=== PATIENT | female | born 1930 | race Caucasian/White ===

== ENCOUNTER 2017-03-27 11:19 | Emergency (ER) | payer MEDICARE, OTHER ==
--- NOTE | 2017-03-27 12:29 | ER NURSING DOCUMENTATION ---
Nurse's Notes [facility] Name:Mary Ann Chavez Age:86 yrs Sex:Female :1930 Arrival Date:03/27/2017 Time:11:19 Bed6 Private MD: Diagnosis:Abrasion Presentation: 03/27 11:26 Presenting complaint: Patient states: Fall with L knee pain. lp 11:26 Acuity: GORAN 3 lp 11:44 Transition of care: Home. lp 11:44 Method Of Arrival: Private Vehicle lp Triage Assessment: 11:41 General: Appears in no apparent distress, Behavior is appropriate for age. Pain: lp Complains of pain in left knee Pain currently is 3 out of 10 on a pain scale. EENT: No deficits noted. Neuro: No deficits noted. Cardiovascular: No deficits noted. Respiratory: No deficits noted. GI: No deficits noted. : No deficits noted. Derm: Skin has lesions on L knee wound. Musculoskeletal: Circulation, motion, and sensation intact Capillary refill < 3 seconds Range of motion limited in left knee. Historical: - Allergies: SULFA (SULFONAMIDES); - Home Meds: 1. Eliquis 5 mg oral tab 1 tab 2 times per day 2. Xarelto 10 mg oral tab 1 tab once daily 3. digoxin 100 mcg oral cap 1 cap once daily 4. diltiazem HCl 60 mg oral cp12 1 cap 2 times per day 5. calcium citrate 250 mg calcium oral tab 6. muultivitamin - PMHx: CHF; ATRIAL FIB; Hypertension; OSTEOPOROSIS; - PSHx: L knee replacement; R hip replacement; - Tetanus: < 10 years. - Ebola Screening: : Patient negative for fever greater than or equal to 101.5 degrees Fahrenheit, and additional compatible Ebola Virus Disease symptoms. Patient denies exposure to infectious person. Patient denies travel to an Ebola-affected area in the 21 days before illness onset. . - Immunization history: Pneumococcal vaccine is up to date, Flu Vaccine < 1 year. - Social history: Smoking status: Patient states was never smoker of tobacco. Screenin:43 Infectious Disease Risk None. Abuse screen: Denies threats or abuse. Denies injuries lp from another. Nutritional screening: No deficits noted. Assessment: 11:42 See Triage Assessment done by same RN. lp Vital Signs: 11:42 BP 136 / 46; Pulse 80; Resp 16; Temp 98.5(TE); Pulse Ox 91% on R/A; Weight 44.45 kg; lp Height 5 ft. 8 in. (172.72 cm); Pain 3/10; 11:42 Body Mass Index 14.90 (44.45 kg, 172.72 cm) lp ED Course: 11:21 Patient arrived in ED. ama 11:26 Mae Ballard, ASHLEIGH is Primary Nurse. lp 11:26 Triage completed. lp 11:27 Jose Juan Saldaña MD is Attending Physician. wy 11:[address] Saldaña notified. lp 11:43 Valuables Remains with patient Patient has correct armband on for positive lp identification. Placed in gown. Bed in low position. Call light in reach. Side rails up X 1. 11:43 Wound care to abrasion, located on left knee was cleaned with soap and water, dressed lp with bacitracin 4X4s, Patient tolerated poorly. Administered Medications: 11:44 Drug: Bacitracin Ointment (500 unit/g) 1 application; {Note: L knee.} Route: Topical; lp Site: wound; Outcome: 11:38 Discharge ordered by . wy 12:28 Discharged to home ambulatory. lp 12:28 Condition: improved 12:28 Instructed on discharge instructions, follow up and referral plans. medication usage, wound care. 12:28 Patient left the ED. lp 03/28 09:31 Discharge F/U Call: Unable to reach: no answer st 09:31 Discharge F/U Call: Unable to reach: no answer st Signatures: Reshma Diaz RN RN Mae Ballard RN RN Jose Juan Saldaña MD MD wy Tj Dawn, Reg Reg ama
--- NOTE | 2017-03-27 12:29 | ER PHYSICIAN DOCUMENTATION ---
Physician Documentation [facility] Name:Mary Ann Chavez Age:86 yrs Sex:Female :1930 Arrival Date:03/27/2017 Time:11:19 Bed6 Private MD: Jose Juan Johansen Disposition: 03/27/17 11:38 Discharged to Home/Self Care. Impression: Abrasion. - Condition is Good. - Discharge Instructions: ABRASION. - Medical Reconciliation form form. - Follow up: Private Physician; When: As needed; Reason: Worsening of condition. - Problem is new. - Symptoms have improved. HPI: 03/27 11:36 This 86 yrs old Female presents to ER with complaints of Fall Injury - L KNEE sc PAIN. 11:36 Details of fall: The patient fell from an upright position, while walking. Onset: The sc symptom(s)/episode began/occurred 1 day(s) ago. Associated injuries: The patient sustained left knee. Associated signs and symptoms: The patient has no apparent associated signs or symptoms, Loss of consciousness: the patient experienced no loss of consciousness. Severity of symptoms: At their worst the symptoms were mild. ambulating without difficulty, wanted abrasion cleaned and knee replacement checked out. Historical: - Allergies: SULFA (SULFONAMIDES); - Home Meds: 1. Eliquis 5 mg oral tab 1 tab 2 times per day 2. Xarelto 10 mg oral tab 1 tab once daily 3. digoxin 100 mcg oral cap 1 cap once daily 4. diltiazem HCl 60 mg oral cp12 1 cap 2 times per day 5. calcium citrate 250 mg calcium oral tab 6. muultivitamin - PMHx: CHF; ATRIAL FIB; Hypertension; OSTEOPOROSIS; - PSHx: L knee replacement; R hip replacement; - Tetanus: < 10 years. - Ebola Screening: : Patient negative for fever greater than or equal to 101.5 degrees Fahrenheit, and additional compatible Ebola Virus Disease symptoms. Patient denies exposure to infectious person. Patient denies travel to an Ebola-affected area in the 21 days before illness onset. . - Immunization history: Pneumococcal vaccine is up to date, Flu Vaccine < 1 year. - Social history: Smoking status: Patient states was never smoker of tobacco. ROS: 11:37 Constitutional: Negative for fever, chills, and weight loss. sc Eyes: Negative for injury, pain, redness, and discharge. Neck: Negative for injury, pain, and swelling. Cardiovascular: Negative for chest pain, palpitations, and edema. Back: Negative for injury and pain. 11:37 Neuro: Negative for headache, weakness, numbness, tingling, and seizure. sc 11:37 MS/extremity: Positive for injury or acute deformity, abrasion. Exam: Constitutional: This is a well developed, well nourished patient who is awake, alert, and in no acute distress. Head/Face: Normocephalic, atraumatic. Eyes: Pupils equal round and reactive to light, extra-ocular motions intact. Lids and lashes normal. Conjunctiva and sclera are non-icteric and not injected. Cornea within normal limits. Periorbital areas with no swelling, redness, or edema. ENT: Nares patent. No nasal discharge, no septal abnormalities noted. Tympanic membranes are normal and external auditory canals are clear. Oropharynx with no redness, swelling, or masses, exudates, or evidence of obstruction, uvula midline. Mucous membranes moist. Neck: Trachea midline, no thyromegaly or masses palpated, and no cervical lymphadenopathy. Supple, full range of motion without nuchal rigidity, or vertebral point tenderness. No meningismus. Chest/axilla: Normal chest wall appearance and motion. Nontender with no deformity. No lesions are appreciated. Cardiovascular: Regular rate and rhythm with a normal S1 and S2. No gallops, murmurs, or rubs. Normal PMI, no JVD. No pulse deficits. Respiratory: Lungs have equal breath sounds bilaterally, clear to auscultation and percussion. No rales, rhonchi or wheezes noted. No increased work of breathing, no retractions or nasal flaring. Abdomen/GI: Soft, non-tender, with normal bowel sounds. No distension or tympany. No guarding or rebound. No evidence of tenderness throughout. 11:37 Back: No spinal tenderness. No costovertebral tenderness. Full range of motion. sc 11:37 Musculoskeletal/extremity: Extremities: grossly normal except: noted in the left knee: ROM: intact in all extremities, full active range of motion, full passive range of motion, Circulation is intact in all extremities. Sensation intact. 11:37 Neuro: Orientation: is normal, Mentation: is normal, Gait: is steady, with walker. Vital Signs: 11:42 BP 136 / 46; Pulse 80; Resp 16; Temp 98.5(TE); Pulse Ox 91% on R/A; Weight 44.45 kg; lp Height 5 ft. 8 in. (172.72 cm); Pain 3/10; 11:42 Body Mass Index 14.90 (44.45 kg, 172.72 cm) lp MDM: 11:27 Patient medically screened. sc 11:38 Differential diagnosis: abrasion. Data reviewed: vital signs, nurses notes, and as a sc result, I will discharge patient. Counseling: I had a detailed discussion with the patient and/or guardian regarding: the historical points, exam findings, and any diagnostic results supporting the discharge/admit diagnosis, the need for outpatient follow up, to return to the emergency department if symptoms worsen or persist or if there are any questions or concerns that arise at home. 0601 11:39 Order name: Wound Care; Complete Time: 11:46 sc Dispensed Medications: 11:44 Drug: Bacitracin Ointment (500 unit/g) 1 application; {Note: L knee.} Route: Topical; lp Site: wound; Signatures: Mae Ballard RN RN lp Jose Juan Saldaña MD MD ak
== END 2017-03-27 12:29 | disposition home or self-care (01) ==
LOC: ER 11:19
DX: S80.212A Abrasion, left knee, initial encounter (principal); W19.XXXA Unspecified fall, initial encounter; Y93.01 Activity, walking, marching and hiking; Z96.652 Presence of left artificial knee joint; Z96.641 Presence of right artificial hip joint; I10 Essential (primary) hypertension; I48.91 Unspecified atrial fibrillation; Z79.01 Long term (current) use of anticoagulants; Z79.899 Other long term (current) drug therapy
CPT/HCPCS: 99283